=== PATIENT | male | born 1940 | race Caucasian/White ===

== ENCOUNTER 2024-04-07 21:07 | Inpatient (IN) | payer MEDICARE, OTHER ==
[~2024-04-07] VITALS: Ht 172.7 cm; Wt 70.3 kg
[2024-04-07] MEDS ORDERED: TRAZ150T75 PO (21:26)
[2024-04-07] MEDS ORDERED: OMEP20TA20 PO (21:26)
[2024-04-07] MEDS ORDERED: SIMV40TA2 PO (21:26)
[2024-04-07] MEDS ORDERED: AMOX125S56 PO (21:26)
[2024-04-07] MEDS ORDERED: TELM40TA2 PO (21:26)
[2024-04-07] MEDS ORDERED: MAG HYDROX/AL HYDROX/SIMETH 30 ML LIQUID UDC PO PRN (23:30)
[2024-04-07] MEDS ORDERED: MAGNESIUM HYDROXIDE 30 ML LIQUID UDC PO PRN (23:30)
[2024-04-07] MEDS ORDERED: LORAZEPAM 0.5 MG TABLET PO PRN (23:30)
[2024-04-07] MEDS: ZOLPIDEM 5 MG TABLET PO PRN (23:56)
[2024-04-08] MEDS: LORAZEPAM 1 MG TABLET PO PRN (01:57)
[2024-04-08 08:23] VITALS: BP 154/45; TEMP 97.8; O2SAT 100
[2024-04-08] MEDS ORDERED: TELMISARTAN 20 MG PO SCH (09:00)
[2024-04-08] MEDS ORDERED: OMEPRAZOLE MAGNESIUM 10 MG PO SCH (09:00)
[2024-04-08] MEDS: AMOXICILLIN-CLAVUL 875-125MG TABLET PO SCH (09:31)
[2024-04-08] MEDS: LOSARTAN POTASSIUM 25 MG TABLET PO SCH (09:31)
[2024-04-08 09:44] LABS: ALANINE AMINOTRANSFERASE 28 U/L (16-63); ALBUMIN 3.7 g/dL (3.4-5.0); ALKALINE PHOSPHATASE 75 U/L (50-136); ASPARTATE AMINOTRANSFERASE 27 U/L (15-37); BILIRUBIN,TOTAL 1.3 mg/dL (0.2-1.0); CALCIUM 9.2 mg/dL (8.5-10.1); CARBON DIOXIDE 30 mmol/L (21-32); CHLORIDE 108 mmol/L (98-107); CREATININE 1.4 mg/dL (0.6-1.3); GLUCOSE 120 mg/dL (74-106); POTASSIUM 3.7 mmol/L (3.5-5.1); SODIUM SERUM 147 mmol/L (136-145); TOTAL PROTEIN, SERUM 6.6 g/dL (6.4-8.2); UREA NITROGEN, BLOOD 23 mg/dL (7-18)
[2024-04-08] MEDS: FLUOXETINE HCL 10 MG CAPSULE PO SCH (10:37)
[2024-04-08 15:01] VITALS: BP 140/68; TEMP 98; O2SAT 99
[2024-04-08 20:00] VITALS: BP 146/81; TEMP 98; O2SAT 96
[2024-04-08] MEDS: MIRTAZAPINE 15 MG TABLET PO SCH (20:19)
[2024-04-08] MEDS: LORAZEPAM 0.5 MG TABLET PO PRN (20:19)
[2024-04-09] MEDS: PANTOPRAZOLE SODIUM 40 MG TABLET.DR PO SCH (06:51)
[2024-04-09 08:04] VITALS: BP 135/87; TEMP 97.4; O2SAT 98
[2024-04-09 16:04] VITALS: BP 156/95; TEMP 97.2; O2SAT 100
[2024-04-09 20:00] VITALS: BP 157/85; TEMP 98.1; O2SAT 97
[2024-04-10 08:04] VITALS: BP 149/74; TEMP 98.1; O2SAT 98
[2024-04-10 08:06] LABS: BASOPHILS % (AUTO) 0.8 % (0.0-2.0); EOSINOPHILS # (AUTO) 0.1 K/uL (0.0-0.7); EOSINOPHILS % (AUTO) 2.1 % (0.0-7.0); HEMATOCRIT 39.2 % (36.7-47.1); HEMOGLOBIN 13.7 g/dL (12.5-16.3); LYMPHOCYTES # (AUTO) 1.6 K/uL (0.8-4.8); LYMPHOCYTES % (AUTO) 29.5 % (20.5-51.5); MEAN CORPUSCULAR HEMOGLOBIN 31.6 uug (23.8-33.4); MEAN CORPUSCULAR HGB CONC 35 g/dL (32.5-36.3); MEAN CORPUSCULAR VOLUME 90.1 fL (73.0-96.2); MONOCYTES # (AUTO) 0.6 K/uL (0.1-1.30); MONOCYTES % (AUTO) 11.4 % (0.0-11.0); NEUTROPHILS # (AUTO) 3.1 K/uL (1.8-8.9); NEUTROPHILS % (AUTO) 56.2 % (38.5-71.5); PLATELET COUNT (AUTO) 139 K/uL (152-348); RED BLOOD CELL COUNT(AUTO) 4.35 MIL/uL (4.06-5.63); RED CELL DISTRIBUTION WIDTH 15.6 % (12.1-16.2); WHITE BLOOD COUNT (AUTO) 5.6 K/uL (3.6-10.2)
[2024-04-10 08:13] LABS: DIFFERENTIAL COMMENT 1
[2024-04-10 08:23] LABS: ALANINE AMINOTRANSFERASE 21 U/L (16-63); ALBUMIN 3.4 g/dL (3.4-5.0); ALKALINE PHOSPHATASE 66 U/L (50-136); ASPARTATE AMINOTRANSFERASE 23 U/L (15-37); BILIRUBIN,TOTAL 1.2 mg/dL (0.2-1.0); CALCIUM 9.1 mg/dL (8.5-10.1); CARBON DIOXIDE 28 mmol/L (21-32); CHLORIDE 110 mmol/L (98-107); CREATINE KINASE, TOTAL 41 U/L (39-308); CREATININE 1.2 mg/dL (0.6-1.3); GLUCOSE 102 mg/dL (74-106); PHOSPHOROUS 3.5 mg/dL (2.5-4.9); SODIUM SERUM 148 mmol/L (136-145); UREA NITROGEN, BLOOD 19 mg/dL (7-18)
[2024-04-10 16:22] VITALS: BP 138/72; TEMP 97.8; O2SAT 96
[2024-04-10 19:53] VITALS: BP 117/78; TEMP 97.9; O2SAT 91
[2024-04-10 20:51] VITALS: O2SAT 95
[2024-04-11 07:51] VITALS: BP 154/87; TEMP 98.4; O2SAT 98
[2024-04-11 10:10] LABS: A/G RATIO 1.6 (0.7-1.7); ALBUMIN 3.3 g/dL (2.9-4.4); ALPHA-1-GLOBULIN 0.2 g/dL (0.0-0.4); ALPHA-2-GLOBULIN 0.6 g/dL (0.4-1.0); BETA GLOBULIN 0.8 g/dL (0.7-1.3); GAMMA GLOBULIN 0.5 g/dL (0.4-1.8); GLOBULIN, TOTAL 2.1 g/dL (2.2-3.9); M-SPIKE Not Observed g/dL (Not Observed); PROTEIN, TOTAL 5.4 g/dL (6.0-8.5)
[2024-04-11] MEDS ORDERED: PROPRANOLOL LA 60 MG CAP.SA.24H PO SCH (10:30)
[2024-04-11 11:07] VITALS: BP 97/70; O2SAT 98
[2024-04-11] MEDS: PROPRANOLOL LA 60 MG CAP.SA.24H PO SCH (11:12)
[2024-04-11 12:08] LABS: PTH, INTACT 25 pg/mL (15-65)
[2024-04-11 15:26] VITALS: BP 118/68; TEMP 98; O2SAT 99
[2024-04-11 20:00] VITALS: BP 150/77; TEMP 98.3; O2SAT 97
[2024-04-11] MEDS: PRIMIDONE 50 MG TABLET PO SCH (20:11)
[2024-04-11] MEDS: SIMVASTATIN 40 MG TABLET PO SCH (20:11)
[2024-04-12 08:04] VITALS: BP 135/73; TEMP 98.7; O2SAT 96
[2024-04-12] MEDS: METHIMAZOLE 5 MG TABLET PO SCH (08:58)
[2024-04-12] MEDS: DOCUSATE SODIUM 100 MG CAPSULE PO SCH (09:05)
[2024-04-12 16:20] VITALS: TEMP 98.1; O2SAT 100
[2024-04-12 16:36] VITALS: BP 133/64; TEMP 98.1; O2SAT 100
[2024-04-12 20:00] VITALS: BP 114/68; TEMP 97.9; O2SAT 100
[2024-04-12] MEDS: ZOLPIDEM 5 MG TABLET PO PRN (23:08)
[2024-04-13 08:04] VITALS: BP 134/62; TEMP 97.5; O2SAT 100
[2024-04-13] MEDS: FLUOXETINE HCL 10 MG CAPSULE PO ONE (15:35)
[2024-04-13 16:04] VITALS: BP 122/56; TEMP 98; O2SAT 100
[2024-04-13 20:00] VITALS: BP 105/50; TEMP 97.7; O2SAT 99
[2024-04-14 08:04] VITALS: BP 147/95; TEMP 97.6; O2SAT 100
[2024-04-14] MEDS: FLUOXETINE HCL 20 MG CAPSULE PO SCH (08:44)
[2024-04-14] MEDS ORDERED: FLUOXETINE HCL 10 MG CAPSULE PO SCH (09:00)
[2024-04-14 16:04] VITALS: BP 151/67; TEMP 98; O2SAT 100
[2024-04-14 20:00] VITALS: BP 141/60; TEMP 98.2; O2SAT 100
[2024-04-15 10:06] VITALS: BP 148/79; TEMP 97.4; O2SAT 97
[2024-04-15 16:00] VITALS: BP 146/59; TEMP 97.9; O2SAT 96
[2024-04-15 19:43] VITALS: BP 136/76; TEMP 98.4; O2SAT 98
[2024-04-16 08:02] VITALS: BP 119/74; TEMP 98.3; O2SAT 97
[2024-04-16 16:04] VITALS: BP 132/57; TEMP 97.6; O2SAT 100
[2024-04-16 20:00] VITALS: BP 161/78; TEMP 97.6; O2SAT 100
[2024-04-16 20:20] VITALS: BP 148/83; O2SAT 98
[2024-04-17 07:53] VITALS: BP 157/72; TEMP 98.2; O2SAT 96
[2024-04-17] MEDS: ARIPIPRAZOLE 5 MG TABLET PO SCH (15:07)
[2024-04-17 15:50] VITALS: BP 141/63; TEMP 98.2; O2SAT 99
[2024-04-17 20:00] VITALS: BP 129/89; TEMP 98.4; O2SAT 98
[2024-04-18 07:47] VITALS: BP 153/81; TEMP 98.4; O2SAT 98
[2024-04-18 15:52] VITALS: BP 97/58; TEMP 98; O2SAT 96
[2024-04-18 20:00] VITALS: BP 138/63; TEMP 98.2; O2SAT 97
[2024-04-18] MEDS: MIRTAZAPINE 15 MG TABLET PO SCH (20:09)
[2024-04-19 07:56] VITALS: BP 160/68; TEMP 97.8; O2SAT 98
[2024-04-19] MEDS: ARIPIPRAZOLE 5 MG TABLET PO SCH (09:16)
[2024-04-19 15:33] VITALS: BP 131/62; TEMP 98; O2SAT 98
[2024-04-19 20:00] VITALS: BP 133/52; TEMP 98; O2SAT 99
[2024-04-20 08:04] VITALS: BP 138/56; TEMP 97.6; O2SAT 100
[2024-04-20 16:02] VITALS: BP 149/83; TEMP 97.8; O2SAT 100
[2024-04-20] MEDS: ENSURE ENLIVE (VAN) 240 ML LIQUID PO SCH (17:21)
[2024-04-20 20:00] VITALS: BP 130/66; TEMP 97.6; O2SAT 92
[2024-04-20] MEDS: HYDROXYZINE PAMOATE 25 MG CAPSULE PO PRN (20:33)
[2024-04-21 08:04] VITALS: BP 151/85; TEMP 97.9; O2SAT 96
[2024-04-21 08:49] VITALS: BP 151/85
== END 2024-04-21 10:30 | disposition home or self-care (01) | DRG 885 ==
LOC: ER 21:07 → GPS 22:31
PROVIDERS: ADMIT Psychiatry & Neurology Psychiatry; ATTEND Internal Medicine
DX: F33.2 Major depressive disorder, recurrent severe without psychotic features (principal); N17.9 Acute kidney failure, unspecified; R45.851 Suicidal ideations; E87.0 Hyperosmolality and hypernatremia; I10 Essential (primary) hypertension; M62.81 Muscle weakness (generalized); G25.0 Essential tremor; Z88.6 Allergy status to analgesic agent; F41.9 Anxiety disorder, unspecified; R41.89 Other symptoms and signs involving cognitive functions and awareness; Z79.899 Other long term (current) drug therapy; R27.9 Unspecified lack of coordination; M89.8X9 Other specified disorders of bone, unspecified site; Z91.81 History of falling; E86.0 Dehydration; E78.5 Hyperlipidemia, unspecified
CPT/HCPCS: 36415; 76775; 83735; 83970; 84100; 84155; 84165; 85025; 93005